=== PATIENT | male | born 2000 | race Hispanic/Latino ===

== ENCOUNTER 2019-06-07 06:01 | Emergency (ER) | payer OTHER ==
[~2019-06-07] VITALS: Ht 180.3 cm; Wt 140.0 kg
[2019-06-07] MEDS ORDERED: BENADRYL 50MG C50 MG PO (06:43)
[2019-06-07 06:52] VITALS: BP 150/61
== END 2019-06-07 07:00 | disposition home or self-care (01) | DRG 607 ==
LOC: ED 06:01
DX: L50.9 Urticaria, unspecified (principal)

== ENCOUNTER 2021-03-18 08:11 | Emergency (ER) | payer BC, OTHER ==
[~2021-03-18] VITALS: Ht 180.3 cm; Wt 145.5 kg
[~2021-03-18 08:11] MED LIST: BENADRYL 50MG C50 MG PO
[2021-03-18] MEDS ORDERED: TORADOL PO (10:42)
[2021-03-18] MEDS ORDERED: FLEXERIL5 M1 PO (10:42)
[2021-03-18 10:53] VITALS: BP 154/75
== END 2021-03-18 10:57 | disposition home or self-care (01) | DRG 93 ==
LOC: ED 08:11
DX: R20.2 Paresthesia of skin (principal)

== ENCOUNTER 2022-11-10 18:02 | Emergency (ER) | payer OTHER ==
[~2022-11-10] VITALS: Ht 180.3 cm; Wt 142.8 kg
[~2022-11-10 18:02] MED LIST changes: +FLEXERIL5 M1 PO; +TORADOL PO
[2022-11-10 18:25] VITALS: BP 147/91
[2022-11-10 18:30] VITALS: BP 152/94
[2022-11-10] MEDS ORDERED: NAPROXEN500 MG PO (18:47)
[2022-11-10 18:51] VITALS: BP 152/94
== END 2022-11-10 18:59 | disposition home or self-care (01) | DRG 563 ==
LOC: ED 18:02
DX: S83.91XA Sprain of unspecified site of right knee, initial encounter (principal); W17.2XXA Fall into hole, initial encounter